=== PATIENT | female | born 1965 | race Caucasian/White ===

== ENCOUNTER 2024-01-27 13:10 | Inpatient (IN) | payer OTHER ==
[~2024-01-27] VITALS: Ht 147.3 cm; Wt 65.8 kg
[2024-01-27 13:30] LABS: BASOPHILS % (AUTO) 0.2 % (0.0-2.0); MONOCYTES # (AUTO) 0.7 K/uL (0.1-1.30); RED BLOOD CELL COUNT(AUTO) 2.79 MIL/uL (4.0-5.2)
[2024-01-27] MEDS: IV NS 0.9% 1,000 ML BAG IV ONE (13:30)
[2024-01-27 13:42] LABS: EOSINOPHILS % (AUTO) 0.1 % (0.0-6.0); HEMATOCRIT 31 % (33-45); HEMOGLOBIN 10.5 g/dL (11.5-14.8); LYMPHOCYTES % (AUTO) 16.4 % (20.0-44.0); MEAN CORPUSCULAR HEMOGLOBIN 38 PG (26.0-33.0); MEAN CORPUSCULAR HGB CONC 34 g/dl (31.0-36.0); MEAN CORPUSCULAR VOLUME 110 fL (82-100); MONOCYTES % (AUTO) 10.7 % (2.0-12.0); NEUTROPHILS # (AUTO) 4.5 K/uL (1.8-8.9); NEUTROPHILS % (AUTO) 72.6 % (43.0-81.0); PLATELET COUNT (AUTO) 91 K/uL (150-450); RED CELL DISTRIBUTION WIDTH 17.9 % (11.5-15.0); WHITE BLOOD COUNT (AUTO) 6.2 K/uL (4.3-11.0)
[2024-01-27 13:49] LABS: ALANINE AMINOTRANSFERASE 53 U/L (12-78); ALBUMIN 3.3 g/dL (3.4-5.0); ALCOHOL, BLOOD < 3 mg/dL (0-10); ALKALINE PHOSPHATASE 125 U/L (46-116); ASPARTATE AMINOTRANSFERASE 35 U/L (15-37); BILIRUBIN,DIRECT 0.1 mg/dL (0.0-0.2); BILIRUBIN,TOTAL 0.4 mg/dL (0.2-1.0); CALCIUM, SERUM 7.8 mg/dL (8.5-10.1); CARBON DIOXIDE 26 mmol/L (21-32); CHLORIDE 97 mmol/L (98-107); CREATININE 0.4 mg/dL (0.6-1.3); GLUCOSE 138 mg/dL (74-106); POTASSIUM 3.2 mmol/L (3.5-5.1); SODIUM SERUM 132 mmol/L (136-145); TOTAL PROTEIN, SERUM 6.6 g/dL (6.4-8.2); UREA NITROGEN, BLOOD 13 mg/dL (7-18)
[2024-01-27] MEDS ORDERED: LORAZEPAM INJ 2 MG/ML VIAL ONE (13:51)
[2024-01-27] MEDS: LEVETIRACETAM (500MG) 1,000 MG in PREMIX 90 EA IV STA (14:00)
[2024-01-27] MEDS: LORAZEPAM INJ 2 MG/ML VIAL IV ONE (14:00)
[2024-01-27 14:12] LABS: ANISOCYTOSIS 1+; BASOPHILS % (MANUAL) 0 % (0.0-2.0); EOSINOPHILS % (MANUAL) 0 % (0-4); LYMPHOCYTES % (MANUAL) 19 % (16-48); MONOCYTES % (MANUAL) 11 % (0-11.0); NEUTROPHILS % (MANUAL) 70 (42-76); PLATELET ESTIMATE DECREASED
[2024-01-27 14:51] LABS: AMPHETAMINE, URINE NEGATIVE (NEGATIVE); BARBITURATE, URINE NEGATIVE (NEGATIVE); BENZODIAZEPINE, URINE NEGATIVE (NEGATIVE); CANNABINOID, URINE NEGATIVE (NEGATIVE); COCCAINE, URINE NEGATIVE (NEGATIVE); OPIATE, URINE NEGATIVE (NEGATIVE); PHENCYCLIDINE SCREEN,URINE NEGATIVE (NEGATIVE)
[2024-01-27] MEDS ORDERED: LORAZEPAM INJ 2 MG/ML VIAL IV PRN (15:00)
[2024-01-27] MEDS ORDERED: MAGNESIUM HYDROXIDE 30 ML UDC PO PRN (15:00)
[2024-01-27] MEDS ORDERED: LEVETIRACETAM (500MG) 500 MG in IV NS 0.9% 100 ML IV SCH ×3 (15:00→21:00)
[2024-01-27] MEDS ORDERED: LEVETIRACETAM (500MG) 1,500 MG in IV NS 0.9% 85 ML IV SCH ×3 (15:00→17:00)
[2024-01-27] MEDS ORDERED: MAG HYDROX/AL HYDROX/SIMETH 30 ML UDC PO PRN (15:00)
[2024-01-27] MEDS ORDERED: Z GUARD REMEDY 4 OZ OINT TP PRN ×2 (15:00→17:00)
[2024-01-27] MEDS ORDERED: ONDANSETRON HCL/PF 4 MG/2 ML VIAL IVP PRN ×2 (15:00→17:00)
[2024-01-27 15:38] LABS: INR 0.97 (0.91-1.10)
[2024-01-27] MEDS: IV NS 0.9% 1,000 ML IV PRN (17:58)
[2024-01-27] MEDS: POTASSIUM CL. PREMIX PERIPHER. 50 ML IV SCH (18:21)
[2024-01-27 20:00] VITALS: BP 108/73; TEMP 99; O2SAT 96
[2024-01-27] MEDS: LEVETIRACETAM (500MG) 500 MG in IV NS 0.9% 100 ML IV SCH (21:23)
[2024-01-28] VITALS: BP 112/65; TEMP 98.8; O2SAT 97
[2024-01-28 04:00] VITALS: BP 108/66; TEMP 99.5; O2SAT 98
[2024-01-28 05:34] VITALS: O2SAT 96
[2024-01-28 07:02] LABS: APPEARANCE,URINE CLEAR (CLEAR); BILIRUBIN,URINE NEGATIVE (NEGATIVE); BLOOD, URINE NEGATIVE Ery/uL (NEGATIVE); COLOR,URINE YELLOW (YELLOW); KETONES,URINE NEGATIVE (NEGATIVE); LEUKOCYTE ESTERASE ,URINE NEGATIVE (NEGATIVE); NITRITE, URINE POSITIVE (NEGATIVE); PROTEIN,URINE NEGATIVE (NEGATIVE); UGLUCOSE NEGATIVE (NEGATIVE); UROBILINOGEN,URINE 0.2 EU/dL (0.2)
[2024-01-28 07:58] LABS: ADD URINE CULTURE YES; BACTERIA,URINE Many /HPF (None Seen); RBC,URINE 0-2 /HPF (0-2); SQUAMOUS EPITHELIAL CELL,UR 0-2 /HPF (None Seen); WBC,URINE NONE SEEN /HPF (0-3)
[2024-01-28 08:00] VITALS: BP 97/66; TEMP 98.6; O2SAT 97
[2024-01-28 08:47] LABS: AMPHETAMINE, URINE NEGATIVE (NEGATIVE); BARBITURATE, URINE NEGATIVE (NEGATIVE); BENZODIAZEPINE, URINE NEGATIVE (NEGATIVE); CANNABINOID, URINE NEGATIVE (NEGATIVE); COCCAINE, URINE NEGATIVE (NEGATIVE); OPIATE, URINE NEGATIVE (NEGATIVE); PHENCYCLIDINE SCREEN,URINE NEGATIVE (NEGATIVE)
[2024-01-28] MEDS ORDERED: LEVETIRACETAM (500MG) 500 MG in IV NS 0.9% 100 ML IV SCH (09:00)
[2024-01-28] MEDS: DICLOFENAC TOPICAL 100 GM TUBE TP SCH (17:04)
[2024-01-28 20:00] VITALS: BP 99/63; TEMP 99; O2SAT 96
[2024-01-28 23:25] VITALS: BP 99/63; TEMP 99; O2SAT 96
[2024-01-29] VITALS (7 sets, daily range): BP systolic 96–113; BP diastolic 57–75; TEMP 97–99.1; O2SAT 92–98
[2024-01-29 06:24] LABS: CALCIUM, SERUM 7.7 mg/dL (8.5-10.1); CREATININE 0.2 mg/dL (0.6-1.3); POTASSIUM 2.8 mmol/L (3.5-5.1)
[2024-01-29 06:34] LABS: BASOPHILS % (AUTO) 0.3 % (0.0-2.0); EOSINOPHILS % (AUTO) 0.2 % (0.0-6.0); HEMATOCRIT 31 % (33-45); HEMOGLOBIN 10.8 g/dL (11.5-14.8); LYMPHOCYTES # (AUTO) 1.2 K/uL (0.8-4.8); LYMPHOCYTES % (AUTO) 27.8 % (20.0-44.0); MEAN CORPUSCULAR HEMOGLOBIN 37 PG (26.0-33.0); MEAN CORPUSCULAR HGB CONC 35 g/dl (31.0-36.0); MEAN CORPUSCULAR VOLUME 105 fL (82-100); MONOCYTES # (AUTO) 0.4 K/uL (0.1-1.30); MONOCYTES % (AUTO) 10.3 % (2.0-12.0); NEUTROPHILS # (AUTO) 2.7 K/uL (1.8-8.9); NEUTROPHILS % (AUTO) 61.4 % (43.0-81.0); PLATELET COUNT (AUTO) 88 K/uL (150-450); RED BLOOD CELL COUNT(AUTO) 2.94 MIL/uL (4.0-5.2); RED CELL DISTRIBUTION WIDTH 17.5 % (11.5-15.0); WHITE BLOOD COUNT (AUTO) 4.4 K/uL (4.3-11.0)
[2024-01-29 07:32] LABS: BASOPHILS % (MANUAL) 0 % (0.0-2.0); EOSINOPHILS % (MANUAL) 2 % (0-4); LYMPHOCYTES % (MANUAL) 23 % (16-48); MONOCYTES % (MANUAL) 10 % (0-11.0); NEUTROPHILS % (MANUAL) 65 (42-76)
[2024-01-29 07:33] LABS: ANISOCYTOSIS 1+; PLATELET ESTIMATE DECREASED
[2024-01-29] MEDS: POTASSIUM CL. PREMIX PERIPHER. 50 ML IV SCH (10:54)
[2024-01-29 16:19] LABS: CALCIUM, SERUM 7.7 mg/dL (8.5-10.1); CREATININE 0.3 mg/dL (0.6-1.3); POTASSIUM 3.5 mmol/L (3.5-5.1)
[2024-01-29] MEDS: ACETAMINOPHEN 325 MG TABLET PO PRN (17:53)
[2024-01-30] VITALS: BP 103/59; TEMP 98.8; O2SAT 94
[2024-01-30 04:07] VITALS: BP 114/67; TEMP 98.6; O2SAT 98
[2024-01-30 04:08] VITALS: BP 114/67; TEMP 98.6; O2SAT 96
[2024-01-30 07:32] LABS: BASOPHILS % (AUTO) 0.2 % (0.0-2.0); EOSINOPHILS % (AUTO) 0.2 % (0.0-6.0); HEMATOCRIT 32 % (33-45); HEMOGLOBIN 11.2 g/dL (11.5-14.8); LYMPHOCYTES # (AUTO) 0.7 K/uL (0.8-4.8); LYMPHOCYTES % (AUTO) 14.8 % (20.0-44.0); MEAN CORPUSCULAR HEMOGLOBIN 37 PG (26.0-33.0); MEAN CORPUSCULAR HGB CONC 35 g/dl (31.0-36.0); MEAN CORPUSCULAR VOLUME 107 fL (82-100); MONOCYTES # (AUTO) 0.5 K/uL (0.1-1.30); MONOCYTES % (AUTO) 11.7 % (2.0-12.0); NEUTROPHILS # (AUTO) 3.2 K/uL (1.8-8.9); NEUTROPHILS % (AUTO) 73.1 % (43.0-81.0); PLATELET COUNT (AUTO) 82 K/uL (150-450); RED CELL DISTRIBUTION WIDTH 17.4 % (11.5-15.0); WHITE BLOOD COUNT (AUTO) 4.4 K/uL (4.3-11.0)
[2024-01-30 08:08] LABS: CALCIUM, SERUM 7.9 mg/dL (8.5-10.1); CREATININE 0.3 mg/dL (0.6-1.3); MAGNESIUM 1.9 mg/dL (1.8-2.4); PHOSPHORUS 2.2 mg/dL (2.5-4.9); POTASSIUM 3.1 mmol/L (3.5-5.1)
[2024-01-30 08:31] LABS: THYROID STIMULATING HORMONE 0.61 uIU/mL (0.358-3.74); URIC ACID 2.4 mg/dL (2.6-7.2)
[2024-01-30] MEDS: LEVETIRACETAM (250 MG) 250 MG TABLET PO SCH (08:47)
[2024-01-30 09:15] LABS: BASOPHILS % (MANUAL) 0 % (0.0-2.0); EOSINOPHILS % (MANUAL) 0 % (0-4); LYMPHOCYTES % (MANUAL) 12 % (16-48); MONOCYTES % (MANUAL) 12 % (0-11.0); NEUTROPHILS % (MANUAL) 76 (42-76)
[2024-01-30 09:16] LABS: ANISOCYTOSIS 1+; PLATELET ESTIMATE DECREASED
[2024-01-30] MEDS: POTASSIUM CL. PREMIX PERIPHER. 50 ML IV SCH (09:22)
[2024-01-30] MEDS: POTASSIUM CHLORIDE 20 MEQ TAB.PRT.SR PO ONE (11:22)
[2024-01-30] MEDS ORDERED: GADOTERATE MEGLUMINE 10 MMOL/20 ML VIAL IV ONE (13:41)
[2024-01-30 16:03] VITALS: BP 99/73; TEMP 99.3; O2SAT 97
[2024-01-30] MEDS: K PHOS NEUTRAL 250 MG TABLET PO ONE (16:58)
[2024-01-30 20:00] VITALS: BP 126/81; TEMP 98.2; O2SAT 99
[2024-01-31] VITALS: BP 106/64; TEMP 100.2; O2SAT 96
[2024-01-31 04:00] VITALS: BP 97/68; TEMP 98.4; O2SAT 99
[2024-01-31 09:16] VITALS: BP 112/63; TEMP 99.7; O2SAT 100
[2024-01-31 10:18] LABS: CALCIUM, SERUM 7.5 mg/dL (8.5-10.1); CREATININE 0.3 mg/dL (0.6-1.3); POTASSIUM 2.8 mmol/L (3.5-5.1)
[2024-01-31 10:23] LABS: ALBUMIN 2.6 g/dL (3.4-5.0); BILIRUBIN,TOTAL 0.6 mg/dL (0.2-1.0)
[2024-01-31] MEDS: POTASSIUM CHLORIDE 20 MEQ TAB.PRT.SR PO SCH (12:17)
[2024-01-31] MEDS ORDERED: LORAZEPAM INJ 2 MG/ML VIAL IM ONE (13:30)
[2024-01-31 16:30] VITALS: BP 102/49; TEMP 99.5; O2SAT 96
[2024-01-31 20:00] VITALS: BP 119/71; TEMP 101.8; O2SAT 97
[2024-01-31 21:18] VITALS: BP 119/71; TEMP 101.8; O2SAT 97
[2024-01-31] MEDS ORDERED: CEFTRIAXONE 1GM BAG (ER ONLY) 50 ML IV ONE (22:28)
[2024-01-31] MEDS: CEFTRIAXONE 1 G in IV D5W 50 ML IV SCH (22:36)
[2024-02-01] VITALS: BP 98/53; TEMP 99.6; O2SAT 95
[2024-02-01 01:26] VITALS: BP 98/53; TEMP 99.6; O2SAT 95
[2024-02-01 04:34] VITALS: BP 113/69; TEMP 98.4; O2SAT 97
[2024-02-01 04:36] VITALS: BP 113/69; TEMP 98.4; O2SAT 97
[2024-02-01 06:39] LABS: CALCIUM, SERUM 7.6 mg/dL (8.5-10.1); CREATININE 0.3 mg/dL (0.6-1.3)
[2024-02-01 06:45] LABS: ALBUMIN 2.3 g/dL (3.4-5.0); BILIRUBIN,TOTAL 0.3 mg/dL (0.2-1.0); TOTAL PROTEIN, SERUM 5.6 g/dL (6.4-8.2)
[2024-02-01] MEDS: POTASSIUM CL. PREMIX PERIPHER. 50 ML IV SCH (09:32)
[2024-02-01] MEDS: LORAZEPAM INJ 2 MG/ML VIAL IM ONE (12:48)
[2024-02-01] MEDS: D5W IV SCH (19:55)
[2024-02-01] MEDS: ACYCLOVIR IV SCH (19:55)
[2024-02-01 20:00] VITALS: BP 99/65; TEMP 98.4; O2SAT 93
[2024-02-02 04:00] VITALS: BP 115/80; TEMP 98.1; O2SAT 97
[2024-02-02 07:00] VITALS: BP 106/76; TEMP 98.8; O2SAT 91
[2024-02-02 08:13] LABS: CALCIUM, SERUM 7.9 mg/dL (8.5-10.1); CREATININE 0.3 mg/dL (0.6-1.3)
[2024-02-02 08:17] LABS: POTASSIUM 2.6 mmol/L (3.5-5.1)
[2024-02-02 08:23] LABS: ALBUMIN 2.4 g/dL (3.4-5.0); BILIRUBIN,TOTAL 0.4 mg/dL (0.2-1.0); TOTAL PROTEIN, SERUM 5.9 g/dL (6.4-8.2)
[2024-02-02 08:31] LABS: BASOPHILS % (AUTO) 0.5 % (0.0-2.0); EOSINOPHILS % (AUTO) 0.1 % (0.0-6.0); HEMATOCRIT 28 % (33-45); HEMOGLOBIN 9.7 g/dL (11.5-14.8); LYMPHOCYTES # (AUTO) 1.2 K/uL (0.8-4.8); MEAN CORPUSCULAR HEMOGLOBIN 36 PG (26.0-33.0); MEAN CORPUSCULAR HGB CONC 34 g/dl (31.0-36.0); MEAN CORPUSCULAR VOLUME 106 fL (82-100); MONOCYTES # (AUTO) 0.4 K/uL (0.1-1.30); MONOCYTES % (AUTO) 14.2 % (2.0-12.0); NEUTROPHILS # (AUTO) 1.4 K/uL (1.8-8.9); NEUTROPHILS % (AUTO) 46.2 % (43.0-81.0); PLATELET COUNT (AUTO) 81 K/uL (150-450); RED BLOOD CELL COUNT(AUTO) 2.67 MIL/uL (4.0-5.2); RED CELL DISTRIBUTION WIDTH 16.8 % (11.5-15.0)
[2024-02-02] MEDS: POTASSIUM CL. PREMIX PERIPHER. 50 ML IV SCH (08:56)
[2024-02-02 09:47] LABS: ANISOCYTOSIS 1+; BASOPHILS % (MANUAL) 0 % (0.0-2.0); EOSINOPHILS % (MANUAL) 0 % (0-4); LYMPHOCYTES % (MANUAL) 36 % (16-48); MONOCYTES % (MANUAL) 11 % (0-11.0); NEUTROPHILS % (MANUAL) 53 (42-76); PLATELET ESTIMATE DECREASED
[2024-02-02] MEDS: POTASSIUM CHLORIDE 20 MEQ TAB.PRT.SR PO SCH (12:33)
[2024-02-02] MEDS ORDERED: GADOTERATE MEGLUMINE 10 MMOL/20 ML VIAL IV ONE (14:17)
[2024-02-02 15:38] LABS: CALCIUM, SERUM 8.1 mg/dL (8.5-10.1); CREATININE 0.9 mg/dL (0.6-1.3); POTASSIUM 3.9 mmol/L (3.5-5.1)
[2024-02-02 16:00] VITALS: BP 117/74; TEMP 99.5; O2SAT 97
[2024-02-02 20:00] VITALS: BP 117/70; TEMP 100; TEMP 98.2; O2SAT 95
[2024-02-02 22:00] VITALS: TEMP 98.2; O2SAT 96
[2024-02-03 06:58] LABS: CALCIUM, SERUM 8.3 mg/dL (8.5-10.1); CREATININE 1.3 mg/dL (0.6-1.3); POTASSIUM 4.5 mmol/L (3.5-5.1)
[2024-02-03 07:04] LABS: ALBUMIN 2.3 g/dL (3.4-5.0); BILIRUBIN,TOTAL 0.3 mg/dL (0.2-1.0); TOTAL PROTEIN, SERUM 5.8 g/dL (6.4-8.2)
[2024-02-03 08:00] VITALS: BP 101/64; TEMP 98.2; O2SAT 98
[2024-02-03 10:28] LABS: BASOPHILS % (AUTO) 0.5 % (0.0-2.0); EOSINOPHILS % (AUTO) 0.4 % (0.0-6.0); HEMATOCRIT 27 % (33-45); HEMOGLOBIN 9.3 g/dL (11.5-14.8); LYMPHOCYTES # (AUTO) 0.8 K/uL (0.8-4.8); LYMPHOCYTES % (AUTO) 23.4 % (20.0-44.0); MEAN CORPUSCULAR HEMOGLOBIN 36 PG (26.0-33.0); MEAN CORPUSCULAR HGB CONC 34 g/dl (31.0-36.0); MEAN CORPUSCULAR VOLUME 106 fL (82-100); MONOCYTES # (AUTO) 0.5 K/uL (0.1-1.30); MONOCYTES % (AUTO) 14.6 % (2.0-12.0); NEUTROPHILS % (AUTO) 61.1 % (43.0-81.0); PLATELET COUNT (AUTO) 74 K/uL (150-450); RED BLOOD CELL COUNT(AUTO) 2.58 MIL/uL (4.0-5.2); WHITE BLOOD COUNT (AUTO) 3.2 K/uL (4.3-11.0)
[2024-02-03 10:50] LABS: BAND % (MANUAL) 1 % (0.0-5.0); LYMPHOCYTES % (MANUAL) 28 % (16-48); MONOCYTES % (MANUAL) 10 % (0-11.0); NEUTROPHILS % (MANUAL) 61 (42-76)
[2024-02-03 10:51] LABS: ANISOCYTOSIS 1+; PLATELET ESTIMATE DECREASED
[2024-02-03 15:51] LABS: CSF GLUCOSE 75 mg/dL (40-70); CSF PROTEIN 60.65 mg/dL (15-45)
[2024-02-03 16:00] VITALS: BP 108/67; TEMP 98.6; O2SAT 95
[2024-02-03] MEDS: D5W IV SCH (16:17)
[2024-02-03] MEDS: ACYCLOVIR IV SCH (16:17)
[2024-02-03 18:38] LABS: CSF APPEARANCE CLEAR (CLEAR); CSF COLOR COLORLESS (COLORLESS); CSF VOLUME 4.5 mL
[2024-02-03 20:00] VITALS: BP 120/72; TEMP 98.6; O2SAT 100
[2024-02-03 20:55] LABS: CSF WHITE BLOOD CELL COUNT 142 /cumm (0-5)
[2024-02-03 20:56] LABS: CSF WHITE BLOOD CELL COUNT 190 /cumm (0-5)
[2024-02-03] MEDS: CEFTRIAXONE 1GM BAG (ER ONLY) 50 ML IV ONE (22:40)
[2024-02-03] MEDS: CEFTRIAXONE 2 G in IV D5W 100 ML IV SCH (22:43)
[2024-02-04 07:02] LABS: BASOPHILS % (AUTO) 0.5 % (0.0-2.0); HEMATOCRIT 24 % (33-45); HEMOGLOBIN 8.3 g/dL (11.5-14.8); LYMPHOCYTES # (AUTO) 0.7 K/uL (0.8-4.8); LYMPHOCYTES % (AUTO) 24.1 % (20.0-44.0); MEAN CORPUSCULAR HEMOGLOBIN 37 PG (26.0-33.0); MEAN CORPUSCULAR HGB CONC 34 g/dl (31.0-36.0); MEAN CORPUSCULAR VOLUME 107 fL (82-100); MONOCYTES # (AUTO) 0.3 K/uL (0.1-1.30); MONOCYTES % (AUTO) 11.6 % (2.0-12.0); NEUTROPHILS # (AUTO) 1.9 K/uL (1.8-8.9); NEUTROPHILS % (AUTO) 62.8 % (43.0-81.0); PLATELET COUNT (AUTO) 62 K/uL (150-450); RED BLOOD CELL COUNT(AUTO) 2.27 MIL/uL (4.0-5.2); RED CELL DISTRIBUTION WIDTH 16.9 % (11.5-15.0); WHITE BLOOD COUNT (AUTO) 2.9 K/uL (4.3-11.0)
[2024-02-04 07:14] LABS: CALCIUM, SERUM 7.9 mg/dL (8.5-10.1); CREATININE 1.2 mg/dL (0.6-1.3); POTASSIUM 3.5 mmol/L (3.5-5.1)
[2024-02-04 07:20] LABS: ALBUMIN 2.1 g/dL (3.4-5.0); BILIRUBIN,TOTAL 0.2 mg/dL (0.2-1.0); TOTAL PROTEIN, SERUM 5.5 g/dL (6.4-8.2)
[2024-02-04 08:06] LABS: *HSV 1 DNA PCR Negative (Negative); *HSV 2 DNA PCR Negative (Negative)
[2024-02-04 08:37] LABS: BASOPHILS % (MANUAL) 0 % (0.0-2.0); EOSINOPHILS % (MANUAL) 2 % (0-4); LYMPHOCYTES % (MANUAL) 20 % (16-48); MONOCYTES % (MANUAL) 13 % (0-11.0); NEUTROPHILS % (MANUAL) 65 (42-76); PLATELET ESTIMATE DECREASED
[2024-02-04] MEDS: CEFTRIAXONE 2 G in IV D5W 100 ML IV SCH (09:08)
[2024-02-04] MEDS: AMPICILLIN SODIUM 2 GM in IV NS 0.9% 100 ML IV SCH (09:12)
[2024-02-04 09:55] LABS: BASOPHILS % (AUTO) 0.5 % (0.0-2.0); EOSINOPHILS % (AUTO) 1.2 % (0.0-6.0); HEMATOCRIT 25 % (33-45); HEMOGLOBIN 8.3 g/dL (11.5-14.8); LYMPHOCYTES # (AUTO) 0.6 K/uL (0.8-4.8); LYMPHOCYTES % (AUTO) 22.8 % (20.0-44.0); MEAN CORPUSCULAR HEMOGLOBIN 37 PG (26.0-33.0); MEAN CORPUSCULAR HGB CONC 34 g/dl (31.0-36.0); MEAN CORPUSCULAR VOLUME 109 fL (82-100); MONOCYTES # (AUTO) 0.2 K/uL (0.1-1.30); NEUTROPHILS # (AUTO) 1.7 K/uL (1.8-8.9); NEUTROPHILS % (AUTO) 67.5 % (43.0-81.0); PLATELET COUNT (AUTO) 63 K/uL (150-450); RED BLOOD CELL COUNT(AUTO) 2.26 MIL/uL (4.0-5.2); RED CELL DISTRIBUTION WIDTH 17.3 % (11.5-15.0); WHITE BLOOD COUNT (AUTO) 2.5 K/uL (4.3-11.0)
[2024-02-04] MEDS: VANCOMYCIN HCL 1.25 GM in IV D5W 250 ML IV ONE (11:28)
[2024-02-04 20:00] VITALS: BP 93/65; TEMP 99.7; O2SAT 95
[2024-02-04] MEDS ORDERED: VANCOMYCIN 500 MG in IV D5W 100ml IV SCH (20:00)
[2024-02-04 20:03] VITALS: O2SAT 95
[2024-02-04] MEDS: ACYCLOVIR IV 500 MG in IV D5W 100 ML IV SCH (23:38)
[2024-02-05 06:52] LABS: ALBUMIN 2.2 g/dL (3.4-5.0); BILIRUBIN,TOTAL 0.2 mg/dL (0.2-1.0); CREATININE 0.8 mg/dL (0.6-1.3); TOTAL PROTEIN, SERUM 5.7 g/dL (6.4-8.2)
[2024-02-05 07:00] VITALS: BP 88/52; TEMP 97.7; O2SAT 96
[2024-02-05 08:23] LABS: BASOPHILS % (AUTO) 0.4 % (0.0-2.0); HEMATOCRIT 23 % (33-45); HEMOGLOBIN 8.1 g/dL (11.5-14.8); LYMPHOCYTES % (AUTO) 32.5 % (20.0-44.0); MEAN CORPUSCULAR HEMOGLOBIN 37 PG (26.0-33.0); MEAN CORPUSCULAR HGB CONC 35 g/dl (31.0-36.0); MEAN CORPUSCULAR VOLUME 107 fL (82-100); MONOCYTES # (AUTO) 0.4 K/uL (0.1-1.30); MONOCYTES % (AUTO) 12.7 % (2.0-12.0); NEUTROPHILS # (AUTO) 1.6 K/uL (1.8-8.9); NEUTROPHILS % (AUTO) 53.4 % (43.0-81.0); PLATELET COUNT (AUTO) 59 K/uL (150-450); RED BLOOD CELL COUNT(AUTO) 2.18 MIL/uL (4.0-5.2); RED CELL DISTRIBUTION WIDTH 16.7 % (11.5-15.0)
[2024-02-05] MEDS: POTASSIUM CHLORIDE 20 MEQ TAB.PRT.SR PO ONE (09:48)
[2024-02-05 12:02] LABS: EOSINOPHILS % (MANUAL) 3 % (0-4); LYMPHOCYTES % (MANUAL) 35 % (16-48); MONOCYTES % (MANUAL) 6 % (0-11.0); NEUTROPHILS % (MANUAL) 56 (42-76)
[2024-02-05 12:03] LABS: ANISOCYTOSIS 1+; PLATELET ESTIMATE DECREASED
[2024-02-05 14:06] LABS: HIV-1 p24 ANTIGEN NON REACTIVE (NONREACTIVE); HIV-1/2 ANTIBODY NON REACTIVE (NONREACTIVE)
[2024-02-05] MEDS: KEY,NONCONTROL,TO KEEP IN PYXI 1 EA MC ONE (15:22)
[2024-02-05 16:00] VITALS: BP 105/58; TEMP 100.6; O2SAT 96
[2024-02-05 20:55] VITALS: BP 94/63; TEMP 98.8; O2SAT 96
[2024-02-06 07:20] LABS: BASOPHILS % (AUTO) 0.4 % (0.0-2.0); EOSINOPHILS % (AUTO) 0.4 % (0.0-6.0); HEMATOCRIT 21 % (33-45); HEMOGLOBIN 7.4 g/dL (11.5-14.8); LYMPHOCYTES % (AUTO) 32.4 % (20.0-44.0); MEAN CORPUSCULAR HEMOGLOBIN 37 PG (26.0-33.0); MEAN CORPUSCULAR HGB CONC 35 g/dl (31.0-36.0); MEAN CORPUSCULAR VOLUME 107 fL (82-100); MONOCYTES # (AUTO) 0.4 K/uL (0.1-1.30); MONOCYTES % (AUTO) 11.7 % (2.0-12.0); NEUTROPHILS # (AUTO) 1.7 K/uL (1.8-8.9); NEUTROPHILS % (AUTO) 55.1 % (43.0-81.0); PLATELET COUNT (AUTO) 54 K/uL (150-450); RED CELL DISTRIBUTION WIDTH 16.8 % (11.5-15.0)
[2024-02-06 07:23] LABS: APPEARANCE,URINE CLEAR (CLEAR); BILIRUBIN,URINE NEGATIVE (NEGATIVE); BLOOD, URINE NEGATIVE Ery/uL (NEGATIVE); COLOR,URINE YELLOW (YELLOW); KETONES,URINE NEGATIVE (NEGATIVE); LEUKOCYTE ESTERASE ,URINE NEGATIVE (NEGATIVE); NITRITE, URINE NEGATIVE (NEGATIVE); PH,URINE 6.5 (5.0-8.0); PROTEIN,URINE NEGATIVE (NEGATIVE); UGLUCOSE NEGATIVE (NEGATIVE); UROBILINOGEN,URINE 0.2 EU/dL (0.2)
[2024-02-06 07:26] LABS: URINE TOTAL PROTEIN 8.9 mg/dL (0-11.9)
[2024-02-06 07:33] LABS: RED BLOOD CELL COUNT(AUTO) 1.98 MIL/uL (4.0-5.2)
[2024-02-06 07:40] LABS: CREATININE 0.6 mg/dL (0.6-1.3); POTASSIUM 3.4 mmol/L (3.5-5.1)
[2024-02-06 08:24] VITALS: BP 92/56; TEMP 99.1; O2SAT 97
[2024-02-06] MEDS: POTASSIUM CHLORIDE 20 MEQ TAB.PRT.SR PO SCH (10:17)
[2024-02-06 11:00] LABS: ANISOCYTOSIS 1+; LYMPHOCYTES % (MANUAL) 38 % (16-48); MONOCYTES % (MANUAL) 8 % (0-11.0); NEUTROPHILS % (MANUAL) 54 (42-76); PLATELET ESTIMATE DECREASED
[2024-02-06 11:03] LABS: EOSINOPHIL,URINE None Seen
[2024-02-06 16:22] VITALS: BP 100/62; TEMP 99.5; O2SAT 96
[2024-02-06 18:44] LABS: HEMOGLOBIN 7.9 g/dL (11.5-14.8)
[2024-02-06 20:00] VITALS: BP 117/60; TEMP 99.1; O2SAT 100
[2024-02-06 22:36] VITALS: BP 117/60; TEMP 99.1; O2SAT 100
[2024-02-07 06:57] LABS: CALCIUM, SERUM 7.9 mg/dL (8.5-10.1); CREATININE 0.5 mg/dL (0.6-1.3); POTASSIUM 3.4 mmol/L (3.5-5.1)
[2024-02-07 07:30] VITALS: BP 94/61; TEMP 98.6; O2SAT 96
[2024-02-07] MEDS: POTASSIUM CHLORIDE 20 MEQ TAB.PRT.SR PO SCH (09:58)
[2024-02-07 10:00] LABS: HEMOGLOBIN 8.4 g/dL (11.5-14.8); LYMPHOCYTES # (AUTO) 0.8 K/uL (0.8-4.8); MONOCYTES # (AUTO) 0.3 K/uL (0.1-1.30); NEUTROPHILS # (AUTO) 1.3 K/uL (1.8-8.9); RED BLOOD CELL COUNT(AUTO) 2.25 MIL/uL (4.0-5.2); WHITE BLOOD COUNT (AUTO) 2.5 K/uL (4.3-11.0)
[2024-02-07 10:06] LABS: BASOPHILS % (AUTO) 0.4 % (0.0-2.0); EOSINOPHILS % (AUTO) 1.2 % (0.0-6.0); HEMATOCRIT 24 % (33-45); MEAN CORPUSCULAR HEMOGLOBIN 37 PG (26.0-33.0); MEAN CORPUSCULAR HGB CONC 35 g/dl (31.0-36.0); MEAN CORPUSCULAR VOLUME 108 fL (82-100); MONOCYTES % (AUTO) 12.1 % (2.0-12.0); NEUTROPHILS % (AUTO) 52.3 % (43.0-81.0)
[2024-02-07 10:10] LABS: PLATELET COUNT (AUTO) 48 K/uL (150-450)
[2024-02-07 10:32] LABS: NEUTROPHILS % (MANUAL) 48 (42-76)
[2024-02-07 10:33] LABS: ANISOCYTOSIS 1+; LYMPHOCYTES % (MANUAL) 37 % (16-48); MONOCYTES % (MANUAL) 15 % (0-11.0); PLATELET ESTIMATE DECREASED
[2024-02-07 15:15] LABS: FIBRINOGEN ACTIVITY 421 Mg/dL (213-485); INR 1.07 (0.91-1.10); PARTIAL THROMBOPLASTIN TIME 23.4 SEC (24.3-34.3); PROTHROMBIN TIME 11.3 SECS (9.2-11.1)
[2024-02-07 15:16] LABS: D-DIMER > 35.20 mg/L(FEU (0.17-0.50)
[2024-02-07 15:32] LABS: RHEUMATOID FACTOR SCREEN POSITIVE (NEGATIVE)
[2024-02-07 15:33] LABS: IRON, SERUM 33 ug/dl (50-175); TOTAL IRON BINDING CAPACITY 196 ug/dl (250-450)
[2024-02-07 15:46] LABS: FERRITIN 371 ng/mL (8-388)
[2024-02-07 16:00] VITALS: BP 101/62; TEMP 99.5; O2SAT 95
[2024-02-07 18:29] LABS: HEMOGLOBIN 7.7 g/dL (11.5-14.8)
[2024-02-07 20:00] VITALS: BP 108/70; TEMP 98.6; O2SAT 100
[2024-02-08 07:30] VITALS: BP 94/68; TEMP 98.6; O2SAT 93
[2024-02-08 07:33] LABS: CALCIUM, SERUM 7.9 mg/dL (8.5-10.1); CREATININE 0.6 mg/dL (0.6-1.3); POTASSIUM 2.9 mmol/L (3.5-5.1)
[2024-02-08 07:57] LABS: BASOPHILS % (AUTO) 0.3 % (0.0-2.0); EOSINOPHILS % (AUTO) 0.7 % (0.0-6.0); HEMATOCRIT 22 % (33-45); HEMOGLOBIN 7.9 g/dL (11.5-14.8); LYMPHOCYTES # (AUTO) 1.5 K/uL (0.8-4.8); LYMPHOCYTES % (AUTO) 37.1 % (20.0-44.0); MEAN CORPUSCULAR HEMOGLOBIN 38 PG (26.0-33.0); MEAN CORPUSCULAR HGB CONC 36 g/dl (31.0-36.0); MEAN CORPUSCULAR VOLUME 106 fL (82-100); MONOCYTES # (AUTO) 0.5 K/uL (0.1-1.30); NEUTROPHILS % (AUTO) 49.9 % (43.0-81.0); PLATELET COUNT (AUTO) 53 K/uL (150-450); RED BLOOD CELL COUNT(AUTO) 2.09 MIL/uL (4.0-5.2); WHITE BLOOD COUNT (AUTO) 4.1 K/uL (4.3-11.0)
[2024-02-08] MEDS: POTASSIUM CHLORIDE 20 MEQ TAB.PRT.SR PO ONE (08:40)
[2024-02-08 09:18] LABS: EOSINOPHILS % (MANUAL) 1 % (0-4); LYMPHOCYTES % (MANUAL) 44 % (16-48); MONOCYTES % (MANUAL) 3 % (0-11.0); NEUTROPHILS % (MANUAL) 52 (42-76)
[2024-02-08 09:19] LABS: PLATELET ESTIMATE DECREASED
[2024-02-08 09:20] LABS: ANISOCYTOSIS 1+
[2024-02-08 10:10] LABS: FOLIC ACID 12.1 ng/mL (>3.0); HEPATITIS B SURFACE AB Non Reactive (.)
[2024-02-08 10:35] LABS: BASOPHILS % (AUTO) 0.2 % (0.0-2.0); EOSINOPHILS % (AUTO) 0.9 % (0.0-6.0); HEMATOCRIT 22 % (33-45); HEMOGLOBIN 7.7 g/dL (11.5-14.8); LYMPHOCYTES # (AUTO) 0.9 K/uL (0.8-4.8); LYMPHOCYTES % (AUTO) 35.6 % (20.0-44.0); MEAN CORPUSCULAR HEMOGLOBIN 38 PG (26.0-33.0); MEAN CORPUSCULAR HGB CONC 35 g/dl (31.0-36.0); MEAN CORPUSCULAR VOLUME 108 fL (82-100); MONOCYTES # (AUTO) 0.4 K/uL (0.1-1.30); MONOCYTES % (AUTO) 13.6 % (2.0-12.0); NEUTROPHILS # (AUTO) 1.3 K/uL (1.8-8.9); NEUTROPHILS % (AUTO) 49.7 % (43.0-81.0); PLATELET COUNT (AUTO) 52 K/uL (150-450); RED BLOOD CELL COUNT(AUTO) 2.04 MIL/uL (4.0-5.2); RED CELL DISTRIBUTION WIDTH 16.9 % (11.5-15.0); WHITE BLOOD COUNT (AUTO) 2.7 K/uL (4.3-11.0)
[2024-02-08 11:10] LABS: *CRYPTOCOCCUS AG, CSF Negative (Negative)
[2024-02-08 11:25] LABS: EOSINOPHILS % (MANUAL) 2 % (0-4); LYMPHOCYTES % (MANUAL) 36 % (16-48); MONOCYTES % (MANUAL) 1 % (0-11.0); NEUTROPHILS % (MANUAL) 61 (42-76)
[2024-02-08 11:26] LABS: ANISOCYTOSIS 1+; PLATELET ESTIMATE DECREASED
[2024-02-08 12:11] LABS: *ANA ANTI-CENTROMERE B AB <0.2 AI (0.0-0.9); *ANA ANTI-DNA(DS) AB, QN 5 IU/mL (0-9); *ANA ANTI-JO-1 <0.2 AI (0.0-0.9); *ANA ANTICHROMATIN ANTIBODY <0.2 AI (0.0-0.9); *ANA RNP ANTIBODIES <0.2 AI (0.0-0.9); *ANA SJOGREN'S ANTI-SS-A <0.2 AI (0.0-0.9); *ANA SJOGREN'S ANTI-SS-B <0.2 AI (0.0-0.9); *ANAANTI-SCLERODERMA-70 AB 0.2 AI (0.0-0.9); *ANASMITH AB <0.2 AI (0.0-0.9); FREE KAPPA LT CHAINS SERUM 31.7 mg/L (3.3-19.4); FREE LAMBDA LT CHAIN SERUM 25.1 mg/L (5.7-26.3); KAPPA/LAMBDA RATIO SERUM 1.26 (0.26-1.65)
[2024-02-08] MEDS: SOD FERRIC GLUC 125 MG in IV NS 0.9% 100 ML IV SCH (14:14)
[2024-02-08 18:54] LABS: HEMOGLOBIN 7.6 g/dL (11.5-14.8)
[2024-02-08 20:00] VITALS: BP 104/77; TEMP 99.9; O2SAT 95
[2024-02-09 03:07] LABS: IMMUNOGLOBULIN A, SERUM 352 mg/dL (87-352); IMMUNOGLOBULIN G, SERUM 807 mg/dL (586-1602); IMMUNOGLOBULIN M, SERUM 86 mg/dL (26-217)
[2024-02-09 06:35] LABS: CALCIUM, SERUM 7.7 mg/dL (8.5-10.1); CREATININE 0.5 mg/dL (0.6-1.3); POTASSIUM 3.4 mmol/L (3.5-5.1)
[2024-02-09 06:39] LABS: FIBRINOGEN ACTIVITY 384 Mg/dL (213-485); INR 1.11 (0.91-1.10); PARTIAL THROMBOPLASTIN TIME 25.8 SEC (24.3-34.3); PROTHROMBIN TIME 11.7 SECS (9.2-11.1)
[2024-02-09 06:41] LABS: D-DIMER > 35.20 mg/L(FEU (0.17-0.50); MAGNESIUM 1.2 mg/dL (1.8-2.4); PHOSPHORUS 3.3 mg/dL (2.5-4.9)
[2024-02-09 07:44] LABS: URIC ACID 1.6 mg/dL (2.6-7.2)
[2024-02-09 10:02] LABS: BASOPHILS % (AUTO) 0.2 % (0.0-2.0); EOSINOPHILS % (AUTO) 1.5 % (0.0-6.0); HEMATOCRIT 21 % (33-45); HEMOGLOBIN 7.5 g/dL (11.5-14.8); LYMPHOCYTES % (AUTO) 35.8 % (20.0-44.0); MEAN CORPUSCULAR HEMOGLOBIN 39 PG (26.0-33.0); MEAN CORPUSCULAR HGB CONC 35 g/dl (31.0-36.0); MEAN CORPUSCULAR VOLUME 109 fL (82-100); MONOCYTES # (AUTO) 0.3 K/uL (0.1-1.30); MONOCYTES % (AUTO) 9.3 % (2.0-12.0); NEUTROPHILS # (AUTO) 1.5 K/uL (1.8-8.9); NEUTROPHILS % (AUTO) 53.2 % (43.0-81.0); WHITE BLOOD COUNT (AUTO) 2.8 K/uL (4.3-11.0)
[2024-02-09 10:04] LABS: RED BLOOD CELL COUNT(AUTO) 1.95 MIL/uL (4.0-5.2)
[2024-02-09 10:07] LABS: PLATELET COUNT (AUTO) 48 K/uL (150-450)
[2024-02-09 10:44] LABS: EOSINOPHILS % (MANUAL) 1 % (0-4); LYMPHOCYTES % (MANUAL) 48 % (16-48); MONOCYTES % (MANUAL) 5 % (0-11.0); NEUTROPHILS % (MANUAL) 46 (42-76)
[2024-02-09 10:45] LABS: ANISOCYTOSIS 1+; PLATELET ESTIMATE DECREASED
[2024-02-09] MEDS: MAGNESIUM OXIDE 400 MG TABLET PO SCH (11:03)
[2024-02-09] MEDS: POTASSIUM CHLORIDE 20 MEQ TAB.PRT.SR PO ONE (11:03)
[2024-02-09] MEDS: diphenhydrAMINE HCL 25 MG CAPSULE PO ONE (13:41)
[2024-02-10 10:09] LABS: VDRL, CSF Non Reactive (Non Rea:<1:1)
[2024-02-10 14:11] LABS: *SPE ALBUMIN 2.6 g/dL (2.9-4.4); *SPE ALPHA-1-GLOBULIN 0.3 g/dL (0.0-0.4); *SPE ALPHA-2-GLOBULIN 0.8 g/dL (0.4-1.0); *SPE GLOBULIN, TOTAL 2.7 g/dL (2.2-3.9); *SPE M-SPIKE Not Observed g/dL (Not Observed); *SPE PROTEIN TOTAL 5.3 g/dL (6.0-8.5); *SPEGAMMA GLOBULIN 0.6 g/dL (0.4-1.8)
== END 2024-02-09 16:01 | disposition home health service (06) | DRG 53 ==
LOC: ER 13:12 → TELE 17:09 → MED 02-01 11:27
PROVIDERS: ADMIT Nurse Practitioner Acute Care; ATTEND Nurse Practitioner Acute Care
PROC: 009U3ZX Drainage of Spinal Canal, Percutaneous Approach, Diagnostic (ICD-10-PCS; principal; 2024-02-03)
PROC: B01BYZZ Fluoroscopy of Spinal Cord using Other Contrast (ICD-10-PCS; 2024-02-03)
DX: G40.909 Epilepsy, unspecified, not intractable, without status epilepticus (principal); B00.4 Herpesviral encephalitis; G92.8 Other toxic encephalopathy; D61.818 Other pancytopenia; E22.2 Syndrome of inappropriate secretion of antidiuretic hormone; N17.9 Acute kidney failure, unspecified; G03.0 Nonpyogenic meningitis; E83.51 Hypocalcemia; E86.1 Hypovolemia; E87.6 Hypokalemia; D53.9 Nutritional anemia, unspecified; E66.9 Obesity, unspecified; M06.9 Rheumatoid arthritis, unspecified; D50.9 Iron deficiency anemia, unspecified; E88.09 Other disorders of plasma-protein metabolism, not elsewhere classified; N39.0 Urinary tract infection, site not specified; M87.852 Other osteonecrosis, left femur; M87.851 Other osteonecrosis, right femur; B96.20 Unspecified Escherichia coli [E. coli] as the cause of diseases classified elsewhere; D69.6 Thrombocytopenia, unspecified
CPT/HCPCS: 36415; 62270; 70450-TC; 70553-TC; 71045-TC; 73502; 80048-TC; 80053-TC; 80076-TC; 81001; 82570-TC; 82607-TC; 82728-TC; 82784; 82962-TC; 83540-TC; 83735-TC; 83935-TC; 84100-TC; 84155; 84165; 84300-TC; 84443-TC; 84550-TC; 85025-TC; 85027-TC; 85396; 85652-TC; 85730-TC; 86140-TC; 86225; 86235; 86334; 86431-TC; 86592; 86706; 86803; 87040-TC; 87086-TC; 87340; 87806; 87899; 89051-TC; 92526; 92611-TC; 94761-TC; 94799-TC; 95819-TC; 97110-TC; 97116-TC; 97530-TC; A4216; A4223; A6403; A9575; G0378; G0480; J0133; J0290; J0696; J1953; J2060; J2916; J3370; J3480; J7030; J7050; J7060; Q0163